=== PATIENT | female | born 1970 | race Hispanic/Latino ===

== ENCOUNTER 2017-01-22 02:08 | Emergency (ER) | payer SELFPAY ==
[~2017-01-22] VITALS: Ht 142.2 cm; Wt 65.2 kg
[~2017-01-22 02:08] MED LIST: ACETTAB3 OR; CEPHALEXIN500 MG PO; CIPROFLOXACN500 MG PO; TYLENOL325 MG OR
[2017-01-22 02:47] LABS: HEMATOCRIT 42.8 % (37.0-47.0); HEMOGLOBIN 14.9 g/dl (12.0-16.0); IMMATURE GRANULOCYTES 0.3 % (0.0-1.0); MEAN CELL VOLUME 85.9 fL CALC (80.0-100.0); MEAN CORPUSCULAR HGB 29.9 pG CALC (26.0-32.0); MEAN CORPUSCULAR HGB CONC 34.8 g/L CALC (32.0-36.0); NEUT# 3.82 thou/uL (2.00-7.15); RED BLOOD COUNT 4.98 mill/uL (4.20-5.60); RED CELL DISTRI WIDTH 11.9 % (11.5-15.5)
[2017-01-22 03:00] LABS: INFLUENZA A NONE DETECTED (NONE DETECT); INFLUENZA B NONE DETECTED (NONE DETECT)
[2017-01-22 03:11] LABS: ALBUMIN 4.4 g/dL (3.2-5.0); ALKALINE PHOSPHATASE 179 u/l (38-126); AMYLASE 68 u/l (30-110); ANION GAP 18 (6-22 (CALC)); BILIRUBIN, TOTAL 0.9 mg/dL (0.0-1.4); BUN 13 mg/dL (7-17); BUN/CREATININE RATIO 25 (12-20 (CALC)); CALCIUM 9.3 mg/dL (8.4-10.2); CARBON DIOXIDE 26 mmol/l (22-30); CHLORIDE 98 mmol/l (95-108); CREATININE 0.5 mg/dL (0.5-1.0); GFR > 60 ML/MIN (>=60 (CALC)); GFR FOR AFR.AMER. > 60 ML/MIN (>=60 (CALC)); GLUCOSE 279 mg/dL (65-105); LIPASE 97 u/l (23-300); POTASSIUM 3.6 mmol/l (3.5-5.1); SGOT/AST 130 u/l (14-36); SGPT/ALT 234 u/l (9-52); SODIUM 138 mmol/l (137-146); TOTAL PROTEIN 8.9 g/dL (6.3-8.2)
[2017-01-22 03:23] LABS: MYOGLOBIN 12 ng/mL (0 - 62)
[2017-01-22] MEDS ORDERED: AMOXICILLIN500 MG PO (03:41)
[2017-01-22] MEDS ORDERED: ATIVAN0.5 MG PO (03:41)
[2017-01-22] MEDS ORDERED: NAPROSYN500 MG PO (03:41)
[2017-01-22 03:50] VITALS: BP 103/73
== END 2017-01-22 03:50 | disposition home or self-care (01) | DRG 313 ==
LOC: ED 02:08
DX: R07.89 Other chest pain (principal); J02.0 Streptococcal pharyngitis; F41.9 Anxiety disorder, unspecified

== ENCOUNTER 2018-07-18 23:44 | Observation (INO) | payer SELFPAY ==
[~2018-07-18] VITALS: Ht 149.9 cm; Wt 65.0 kg
[~2018-07-18 23:44] MED LIST changes: +AMOXICILLIN500 MG PO; +ATIVAN0.5 MG PO; +NAPROSYN500 MG PO
--- NOTE | 2018-07-19 00:10 | NUR ---
PT. TO ROOM 9 VIA EMS WITH C/O SON THAT HIS MOM HAD BEEN DRINKING AND SHE WAS NOT TALKING AND," NOT ACTING RIGHT." PT. IS [place] SPEAKING ONLY. SPOKE TO PT. IN HER [place] LANGUAGE OF [place]. V/S STABLE. PT. IS ORIENTED TO TIME AND PLACE. HER 2 SONS ARE AT BEDS SIDE. EMS BG WAS 535 BG HERE REGISTERED HI. AWARE. PT. DOES NOT KNOW THE MEDS SHE IS TAKING, NOR DO HER SONS. PT. IS MOSTLY NON-VERBAL.
[2018-07-19 00:24] LABS: HEMATOCRIT 37.5 % (37.0-47.0); IMMATURE GRANULOCYTES 0.2 % (0.0-5.0); MEAN CELL VOLUME 87.6 fL CALC (80.0-100.0); MEAN CORPUSCULAR HGB 30.4 pG CALC (26.0-32.0); MEAN CORPUSCULAR HGB CONC 34.7 g/L CALC (32.0-36.0); NEUT# 3.15 thou/uL (2.00-7.15); RED BLOOD COUNT 4.28 mill/uL (4.20-5.60)
[2018-07-19 00:25] LABS: URINE BILIRUBIN - DIPSTICK NEGATIVE (NEGATIVE); URINE BLOOD DIPSTICK TRACE-LYSED (NEGATIVE); URINE COLOR YELLOW; URINE GLUCOSE - DIPSTICK >=1000 mg/dL (NEGATIVE); URINE KETONE NEGATIVE (NEGATIVE); URINE LEUK ESTERASE TRACE (NEGATIVE); URINE NITRITE - DIPSTICK NEGATIVE (Negative); URINE PROTEIN - DIPSTICK NEGATIVE (NEG-TRACE); URINE UROBILINOGEN - DIPSTICK 0.2 E.U./dL (0.2)
--- NOTE | 2018-07-19 00:27 | NUR ---
ASSISTED PT. TO BP. VOIDED QS WHITE URINE 1200 ML.
[2018-07-19 00:32] LABS: BARBITURATES NEGATIVE (NEGATIVE); COCAINE NEGATIVE (NEGATIVE); METHADONE NEGATIVE (NEGATIVE); OXCYCODONE NEGATIVE (NEGATIVE); TETRAHYDROCANNABIONOL NEGATIVE (NEGATIVE); TRICYLIC ANTIDEPRESSANTS NEGATIVE (NEGATIVE); URINE CLARITY CLEAR
--- NOTE | 2018-07-19 00:35 | NUR ---
PO ASA IVF, NITROGLYCERIN OINT. AND IV INSULIN GIVEN PER MD ORDER.
[2018-07-19 00:40] LABS: ALBUMIN 3.7 g/dL (3.2-5.0); ALKALINE PHOSPHATASE 164 u/l (38-126); AMYLASE 68 u/l (30-110); BILIRUBIN, TOTAL 0.4 mg/dL (0.0-1.4); BUN 13 mg/dL (7-17); BUN/CREATININE RATIO 20 (12-20 (CALC)); CHLORIDE 107 mmol/l (95-108); CREATININE 0.7 mg/dL (0.5-1.0); ETHYL ALCOHOL 145 mg/dl (0-30); GFR > 60 ML/MIN (>=60 (CALC)); GFR FOR AFR.AMER. > 60 ML/MIN (>=60 (CALC)); LIPASE 114 u/l (23-300); POTASSIUM 3.6 mmol/l (3.5-5.1); SODIUM 141 mmol/l (137-146)
[2018-07-19 00:41] LABS: ANION GAP 21 (6-22 (CALC)); CARBON DIOXIDE 17 mmol/l (22-30); SGOT/AST 23 u/l (14-36); TOTAL PROTEIN 6.9 g/dL (6.3-8.2)
[2018-07-19 00:51] LABS: MYOGLOBIN 26 ng/mL (0 - 62)
[2018-07-19 00:56] LABS: ACT PARTIAL THROMBO TIME 25.7 SECONDS (20.0-32.5); INTERNATIONAL NORMALIZED RATIO 0.9 RATIO (0.7-1.3); PROTHROMBIN TIME 9.6 SECONDS (9.0-12.5)
--- NOTE | 2018-07-19 01:15 | NUR ---
PT. AND SON DUE NOT KNOW ANY OF HER MEDS.
--- NOTE | 2018-07-19 01:25 | NUR ---
ACCU CHECK 217, MD AWARE.
--- NOTE | 2018-07-19 01:40 | NUR ---
PT. STATES HE CP IS COMPLETLY RESOLVED OF THIS TIME.
--- NOTE | 2018-07-19 02:00 | NUR ---
IN ROOM TO DISCUSS CLINICAL FINDINGS WITH PT. AND SON, VERBALIZED UNDERSTANDING.
--- NOTE | 2018-07-19 02:26 | NUR ---
Admission Note Report Given to: WILLIAM JACKSON Transported by: Wheelchair X Stretcher Transported with: X Nurse Transporter X Patent IV [id number] X Ore Fielder
--- NOTE | 2018-07-19 02:32 | NUR ---
PT. TAKEN TO MT FLOOR VIA STRETCHER. WITH SON, NO C/O.
[2018-07-19 02:40] VITALS: BP 120/72
--- NOTE | 2018-07-19 02:40 | NUR ---
PT ARRIVED TO THE FLOOR VIA STRETCHER ACCOMPANIED BY ED NURSE. PT APPEARS TO BE IN STABLE CONDITION AT THIS TIME. SON IS AT SIDE. SON IS INTERPRETING FOR PT. PT IS ONLY SLIGHTLY ANSWERING WITH NODS OF HER HEAD. NON-VERBAL FOR THE MOST PART. SHE APPEARS SOMEWHAT GUARDED AND TEARY. WE REASSURED PT AND ATTEMPTED TO PROVIDE COMFORT TO HER AND SON. ORIENTED TO ROOM, CALL SYSTEM, LIGHTS, BED. AND INSTRUCTED TO CALL FOR ASSISTANCE AMBULATING TO RESTROOM OR FOR ANY CHANGES IN CONDITION, PAIN/N/V OR OTHER NEEDS. PT DENIED PAIN/N/V BY SHAKING HER HEAD. SHE DID STATE SOME ABDOMINAL TENDERNESS IN ALL QUADRANTS UPON PALPATION. ABD IS SOFT W/ACTIVE BOWEL SOUNDS. PT AMBULATED W/1XSTANDBY ASSIST TO BED FROM STRETCHER UPON ARRIVING TO THE FLOOR. SKIN IS INTACT, NEURO'S INTACT. IV FLUIDS ARE BEING ADMINSTERED ORDERS PROVIDE. IV SITE PATENT AND APPEARS HEALTHY. SON PROVIDED FOOD AND BLANKETS.
[2018-07-19 05:22] VITALS: BP 115/63
--- NOTE | 2018-07-19 05:36 | NUR ---
PT MEDICATED ORDERS PROVIDE AND PT ASSISTED TO RESTROOM AND BACK TO BED. SON IS ASLEEP ON COUCH IN ROOM. NO S/S OF DISTRESS NOTED. IV FLUIDS RUNNING NS@125. CALL LIGHT W/IN REACH AND PT ENCOURAGED TO CALL IF ANY NEEDS ARISE.
--- NOTE | 2018-07-19 07:00 | NUR ---
SHIFT CHANGE REPORT FROM WILLIAM, PT AWAKE AND ALERT, EXTREMELY DIAPHORETIC AT THIS TIME BUT DENIES PAIN,DIZZINESS OR NAUSEA. BLOOD GLUCOSE AND VITAL SIGNS MEASURED AND WERE WNL, HEAT IN ROOM TURNED DOWN AND COOL DAMP WASHCLOTH GIVEN TO PAT FACE. SYMPTOMS RELIEVED AFTER APPROXIMATELY 45 MINS AND PT DIDN'T C/O ANYMORE OF SUCH, CALL ADAME IN REACH, SON IN ROOM AT THIS TIME.
[2018-07-19 07:19] VITALS: BP 115/65
[2018-07-19 09:32] LABS: CHOLESTEROL HDL RATIO 3.8 (<4.4 (CALC)); MAGNESIUM 1.8 mg/dL (1.6-2.3)
--- NOTE | 2018-07-19 11:40 | NUR ---
ASSISTED TO BR AND BACK TO BED, GAIT SLIGHTLY UNSTEADY AND SLOW. DR CHAMORRO HERE AND ROUNDED, ADVISED PT TO ELIMINATE EXCESSIVE ALCOHOL INTAKE DUE TO NEGATIVE IMPACT ON LIVER. PT STATED UNDERSTANDING IN SON'S PRESENCE.
[2018-07-19 11:56] VITALS: BP 108/60
[2018-07-19 16:03] VITALS: BP 113/72
--- NOTE | 2018-07-19 19:05 | NUR ---
BEDSIDE REPORT RECEIVED. PT IS JUST GETTING OUT OF THE SHOWER AND SETTLED INTO BED. SHE STATES THAT SHE FEELS BETTER. IV FLUIDS ARE RUNNING AND SITE APPEARS PATENT AND HEALTHY. NO APPARENT TREMORS, PT IS VERY QUIET, MOSTLY NON-VERBAL AND RESPONDS W/NOD OF HEAD YES OR NO ONLY. DENIES PAIN/N/V AT THIS TIME. REMINDED OF CALL SYSTEM/LIGHT.
[2018-07-19 19:15] VITALS: BP 132/83
[2018-07-20 00:24] VITALS: BP 114/68
--- NOTE | 2018-07-20 02:09 | NUR ---
PT IS SLEEPING SOUNDLY, DID NOT AWAKE TO MY ENTERING ROOM. FAMILY X2 IS AT BEDSIDE ASLEEP ON THE COUCH. I OFFERED A ROLL-AWAY BED AND ADDITIONAL BLANKETS/DENIED. THEY DO HAVE BLANKETS FOR COMFORT. DENIES ANY OTHER NEEDS. PT IV FLUIDS ARE RUNNING ORDERED/SITE APPEARS HEALTHY. WILL CONTINUE TO MONITOR.
--- NOTE | 2018-07-20 04:05 | NUR ---
PT ASSISTED TO RESTROOM AND BACK TO BED. DENIES PAIN/N/V, NO S/O TREMORS, PT DENIES ANY VISUAL OR AUDITORY DISTURBANCES. LOCX3. SON IS AT BEDSIDE W/2ND FAMILY MEMBER.
[2018-07-20 04:15] VITALS: BP 124/83
[2018-07-20 05:23] LABS: HEMOGLOBIN 14.1 g/dl (12.0-16.0); IMMATURE GRANULOCYTES 0.4 % (0.0-5.0); MEAN CELL VOLUME 86.7 fL CALC (80.0-100.0); MEAN CORPUSCULAR HGB 29.8 pG CALC (26.0-32.0); MEAN CORPUSCULAR HGB CONC 34.4 g/L CALC (32.0-36.0); NEUT# 2.97 thou/uL (2.00-7.15); RED BLOOD COUNT 4.73 mill/uL (4.20-5.60); RED CELL DISTRI WIDTH 12.1 % (11.5-15.5)
[2018-07-20 05:45] LABS: BUN 10 mg/dL (7-17); BUN/CREATININE RATIO 25 (12-20 (CALC)); CALCULATED LDLCHOLESTEROL 106 mg/dL (62-129 (CALC)); CHLORIDE 107 mmol/l (95-108); CHOLESTEROL HDL RATIO 3.5 (<4.4 (CALC)); CREATININE 0.4 mg/dL (0.5-1.0); GFR > 60 ML/MIN (>=60 (CALC)); GFR FOR AFR.AMER. > 60 ML/MIN (>=60 (CALC)); HDL CHOLESTEROL 55 mg/dL (>=40); MAGNESIUM 1.7 mg/dL (1.6-2.3); SODIUM 139 mmol/l (137-146); TOTAL CHOLESTEROL 193 mg/dl (0-199); TOTAL TRIGLYCERIDES 162 mg/dl (30-149); VLDL CHOLESTROL 32 mg/dl (2-49 (CALC))
[2018-07-20 05:46] LABS: ANION GAP 13 (6-22 (CALC)); CARBON DIOXIDE 23 mmol/l (22-30)
[2018-07-20 07:51] VITALS: BP 114/71
--- NOTE | 2018-07-20 10:39 | NUR ---
PT REQUESTED SHOWER, SET UP FOR IT, COMPLETED AND SETTLED IN RECLINER. DR CHAMORRO ROUNDED AND DISCUSSED D/C PLANS, PT STATED UNDERSTANDING.
[2018-07-20 11:08] VITALS: BP 123/82
[2018-07-20] MEDS ORDERED: METFORMIN1000 MG PO ×2 (13:39→13:43)
[2018-07-20] MEDS ORDERED: ASPIRIN ADULT L81 MG PO (13:39)
[2018-07-20] MEDS ORDERED: AMARYL2 MG PO ×2 (13:39→13:44)
[2018-07-20] MEDS ORDERED: LIPITOR40 M1 PO ×2 (13:39→13:43)
== END 2018-07-20 16:30 | disposition home or self-care (01) | DRG 206 ==
LOC: ED 23:44 → ED-I 07-19 00:06 → ED 07-19 02:22 → MS2 07-19 02:23
PROVIDERS: Emergency Medicine; Nurse Practitioner Family; ADMIT Internal Medicine; ATTEND Internal Medicine
DX: M94.0 Chondrocostal junction syndrome [Tietze] (principal); E11.65 Type 2 diabetes mellitus with hyperglycemia; F10.129 Alcohol abuse with intoxication, unspecified; Y90.6 Blood alcohol level of 120-199 mg/100 ml; T38.3X6A Underdosing of insulin and oral hypoglycemic [antidiabetic] drugs, initial encounter; F41.9 Anxiety disorder, unspecified; F32.9 Major depressive disorder, single episode, unspecified; Z91.128 Patient's intentional underdosing of medication regimen for other reason; Z91.11 Patient's noncompliance with dietary regimen
CPT/HCPCS: G0378

== ENCOUNTER 2023-05-04 18:33 | Observation (INO) | payer SELFPAY ==
[~2023-05-04] VITALS: Ht 149.9 cm; Wt 63.8 kg
[2023-05-04] VITALS (19 sets, daily range): BP systolic 97–128; BP diastolic 49–98
[~2023-05-04 18:33] MED LIST changes: +AMARYL2 MG PO; +ASPIRIN ADULT L81 MG PO; +LIPITOR40 M1 PO; +METFORMIN1000 MG PO
[2023-05-04 19:41] LABS: BASO% 0.3 % (0-3); EOS% 0.6 % (0-8); IMMATURE GRANULOCYTES 0.3 % (0.0-5.0); LYMPH% 33.7 % (15-41); MEAN CELL VOLUME 83.6 fL CALC (80.0-100.0); MEAN CORPUSCULAR HGB CONC 34.7 g/dL CAL (32.0-36.0); NEUT# 4.59 thou/uL (2.00-7.15); NEUT% 58.1 % (42-76); RED BLOOD COUNT 5.79 mill/uL (4.20-5.60); RED CELL DISTRI WIDTH 11.6 % (11.5-15.5)
[2023-05-04 19:42] LABS: URINE BILIRUBIN - DIPSTICK NEGATIVE (NEGATIVE); URINE COLOR YELLOW; URINE GLUCOSE - DIPSTICK >=1000 mg/dL (NEGATIVE); URINE KETONE Negative (NEGATIVE); URINE SPECIFIC GRAVITY <=1.005
[2023-05-04 19:43] LABS: URINE BLOOD DIPSTICK NEGATIVE (NEGATIVE); URINE LEUK ESTERASE NEGATIVE (NEGATIVE); URINE NITRITE - DIPSTICK NEGATIVE (Negative); URINE PH 5.5 (4.5-8.0); URINE PROTEIN - DIPSTICK NEGATIVE (NEG-TRACE); URINE UROBILINOGEN - DIPSTICK 0.2 E.U./dL (0.2)
[2023-05-04 19:45] LABS: HEMATOCRIT 48.4 % (37.0-47.0); HEMOGLOBIN 16.8 g/dl (12.0-16.0)
[2023-05-04 19:54] LABS: ALKALINE PHOSPHATASE 150 u/l (38-126); BUN 14 mg/dL (7-17); BUN/CREATININE RATIO 18 (12-20 (CALC)); CHLORIDE 96 mmol/l (95-108); CREATININE 0.8 mg/dL (0.5-1.0); GFR FOR AFR.AMER. > 60 ML/MIN (>=60 (CALC)); GFR OTHER RACES > 60 ML/MIN (>=60 (CALC)); POTASSIUM 3.9 mmol/l (3.5-5.1); SGOT/AST 29 u/l (14-36); SODIUM 133 mmol/l (137-146)
[2023-05-04 20:03] LABS: ALBUMIN 5.1 g/dL (3.2-5.0); ANION GAP 27 (6-22 (CALC)); CARBON DIOXIDE 14 mmol/l (22-30); TOTAL PROTEIN 8.8 g/dL (6.3-8.2)
[2023-05-04] MEDS ORDERED: GABAPENTIN300 M2 PO (21:57)
[2023-05-04] MEDS ORDERED: ATORVASTATIN CA10 MG PO (21:58)
[2023-05-04] MEDS ORDERED: GLIPIZIDE5 M2 PO (21:58)
[2023-05-04] MEDS ORDERED: METFORMIN HCL1000 MG PO (21:59)
[2023-05-04] MEDS ORDERED: PIOGLITAZONE HC30 MG (21:59)
[2023-05-04 22:34] LABS: ALBUMIN 3.9 g/dL (3.2-5.0); ALKALINE PHOSPHATASE 116 u/l (38-126); ANION GAP 17 (6-22 (CALC)); BILIRUBIN, TOTAL 0.6 mg/dL (0.02-1.3); BUN 11 mg/dL (7-17); BUN/CREATININE RATIO 22 (12-20 (CALC)); CARBON DIOXIDE 16 mmol/l (22-30); CHLORIDE 108 mmol/l (95-108); CREATININE 0.5 mg/dL (0.5-1.0); GFR FOR AFR.AMER. > 60 ML/MIN (>=60 (CALC)); GFR OTHER RACES > 60 ML/MIN (>=60 (CALC)); POTASSIUM 3.7 mmol/l (3.5-5.1); SGOT/AST 26 u/l (14-36); SODIUM 137 mmol/l (137-146); TOTAL PROTEIN 7.1 g/dL (6.3-8.2)
[2023-05-05] VITALS (22 sets, daily range): BP systolic 102–132; BP diastolic 49–79
[2023-05-05 06:07] LABS: HEMATOCRIT 37.4 % (37.0-47.0); HEMOGLOBIN 12.5 g/dl (12.0-16.0); MEAN CELL VOLUME 85.6 fL CALC (80.0-100.0); MEAN CORPUSCULAR HGB 28.6 pG CALC (26.0-32.0); MEAN CORPUSCULAR HGB CONC 33.4 g/dL CAL (32.0-36.0); RED BLOOD COUNT 4.37 mill/uL (4.20-5.60); RED CELL DISTRI WIDTH 11.8 % (11.5-15.5)
[2023-05-05 06:27] LABS: ALBUMIN 3.5 g/dL (3.2-5.0); ALKALINE PHOSPHATASE 107 u/l (38-126); BUN 10 mg/dL (7-17); BUN/CREATININE RATIO 22 (12-20 (CALC)); CALCULATED LDLCHOLESTEROL 121 mg/dL (62-129 (CALC)); CHLORIDE 107 mmol/l (95-108); CHOLESTEROL HDL RATIO 4.1 (<4.4 (CALC)); CREATININE 0.5 mg/dL (0.5-1.0); GFR FOR AFR.AMER. > 60 ML/MIN (>=60 (CALC)); GFR OTHER RACES > 60 ML/MIN (>=60 (CALC)); HDL CHOLESTEROL 46 mg/dL (39.0-59.0); MAGNESIUM 1.6 mg/dL (1.6-2.3); POTASSIUM 3.6 mmol/l (3.5-5.1); SGOT/AST 24 u/l (14-36); SODIUM 136 mmol/l (137-146); TOTAL CHOLESTEROL 191 mg/dl (0-199); TOTAL PROTEIN 6.7 g/dL (6.3-8.2); TOTAL TRIGLYCERIDES 115 mg/dl (0-149); VLDL CHOLESTROL 23 mg/dl (2-49 (CALC))
[2023-05-05 06:28] LABS: ANION GAP 11 (6-22 (CALC)); BILIRUBIN, TOTAL 0.9 mg/dL (0.02-1.3); CARBON DIOXIDE 22 mmol/l (22-30)
[2023-05-05] MEDS ORDERED: METFORMIN HCL1000 MG PO (09:11)
[2023-05-05] MEDS ORDERED: GLIPIZIDE5 M2 PO (09:12)
== END 2023-05-05 12:10 | disposition home or self-care (01) | DRG 639 ==
LOC: ED 18:33 → ED-I 18:48 → ED 18:48 → ED-I 20:45 → ED 21:11 → ICU 21:12
PROVIDERS: Emergency Medicine; Family Medicine; ADMIT Internal Medicine; ATTEND Internal Medicine
DX: E11.10 Type 2 diabetes mellitus with ketoacidosis without coma (principal); F10.129 Alcohol abuse with intoxication, unspecified; E86.0 Dehydration; F41.0 Panic disorder [episodic paroxysmal anxiety]; Y90.6 Blood alcohol level of 120-199 mg/100 ml; T38.3X6A Underdosing of insulin and oral hypoglycemic [antidiabetic] drugs, initial encounter; Z91.128 Patient's intentional underdosing of medication regimen for other reason; Z79.84 Long term (current) use of oral hypoglycemic drugs
CPT/HCPCS: J2060